=== PATIENT | female | born 1990 | race Two or more races ===

== ENCOUNTER 2019-02-05 07:47 | Emergency (ER) | payer SELFPAY ==
[~2019-02-05] VITALS: Ht 170.2 cm; Wt 128.0 kg
[2019-02-05 08:02] VITALS: BP 138/87; Ht 170.2 cm; Wt 128.0 kg
== END 2019-02-05 09:42 | disposition home or self-care (01) ==
LOC: ED 07:47
DX: L08.89 Other specified local infections of the skin and subcutaneous tissue (principal)

== ENCOUNTER → 2019-02-15 | Outpatient (CLI) | payer OTHER ==
[2019-02-15 09:53] LABS: BASOPHIL % 0.3 % (0-2); PLATELET COUNT 269 x10^3mcL (130-400); RED CELL DISTRIBUTION WIDTH 12.3 % (11.5-14.5)
[2019-02-15 10:08] LABS: ALBUMIN 3.8 g/dL (3.4-5.0); ALKALINE PHOSPHATASE 105 U/L (46-116); ALT/SGPT 82 U/L (14-59); AST/SGOT 25 U/L (15-37); BILIRUBIN DIRECT 0.11 mg/dL (0.0-0.2); BILIRUBIN TOTAL 0.39 mg/dL (0.20-1.00); CARBON DIOXIDE 26.7 mmol/L (21-32); CHLORIDE SERUM 105 mmol/L (98-107); CHOLESTEROL 199 mg/dL (<200); CHOLESTEROL/HDL RATIO 5.1; CREATININE SERUM 0.7 mg/dL (0.6-1.0); GFR1 > 60 mL/min; GLUCOSE SERUM 84 mg/dL (74-106); HDL CHOLESTEROL 39 mg/dL (40-60); POTASSIUM SERUM 4.1 mmol/L (3.5-5.1); SODIUM SERUM 140 mmol/L (136-145); TOTAL PROTEIN, SERUM 7.9 g/dL (6.4-8.2); TRIGLYCERIDES 168 mg/dL (<150)
== END | disposition home or self-care (01) ==
LOC: LB 09:29
PROVIDERS: Internal Medicine
DX: Z00.00 Encounter for general adult medical examination without abnormal findings (principal)

== ENCOUNTER → 2019-02-23 | Outpatient (CLI) | payer OTHER | END | disposition home or self-care (01) | LOC: US 08:51 | PROC: BW40ZZZ Ultrasonography of Abdomen (ICD-10-PCS; principal; 2019-02-23) | DX: R74.0 Nonspecific elevation of levels of transaminase and lactic acid dehydrogenase [LDH] (principal) ==